=== PATIENT | male | born 1975 | race Caucasian/White ===

== ENCOUNTER 2021-12-31 06:06 | Outpatient (CLI) | payer OTHER ==
[~2021-12-31] VITALS: Ht 167.6 cm; Wt 87.5 kg
[2022-01-01] MEDS ORDERED: MELA10TA10 SL (09:36)
[2022-01-01] MEDS ORDERED: MELO15TA39 PO (09:36)
== END 2022-01-01 09:52 | disposition home or self-care (01) ==
LOC: PREOP 06:06
PROVIDERS: ATTEND Surgery
DX: Z01.818 Encounter for other preprocedural examination (principal)

== ENCOUNTER 2022-01-12 10:15 | Day surgery (SDC) | payer OTHER ==
[~2022-01-12] VITALS: Ht 167.6 cm; Wt 87.5 kg
[~2022-01-12 10:15] MED LIST: MELA10TA10 SL; MELO15TA39 PO
[2022-01-12] MEDS ORDERED: LACTATED RINGERS 1,000 ML IV STA (10:21)
[2022-01-12] MEDS ORDERED: HURRICAINE EXT TUBE (BENZOCAINE) XX PRN (10:30)
[2022-01-12] MEDS ORDERED: LACTATED RINGERS 1,000 ML IV ONE (10:39)
[2022-01-12 11:00] VITALS: BP 131/91
[2022-01-12] MEDS ORDERED: PROPOFOL INJECTION 50 ML IV ONE (12:58)
[2022-01-12] MEDS ORDERED: MIDAZOLAM 2 MG/2 ML (VERSED) VIAL ONE (12:58)
[2022-01-12 13:35] VITALS: BP 115/68
--- NOTE | 2022-01-12 13:39 | Progress Note-Post Operative ---
Post-Operative Progess Note Surgeon (s)/Telecasting Technician (s) Surgeon KEANU LARSON DO Telecasting Technician: none Pre-Operative Diagnosis GERD, Screening Colonoscopy Post-Operative Diagnosis Gastritis Esophagitis Hiatal hernia Polyps diverticula int hemorrhoids Procedure & Operative Findings Date of Procedure 01/12/22 Procedure Performed/Findings EGD with bx Colon with hot bx PROCEDURE NOTE: After informed consent was obtained, the patient was brought to the endoscopy suite, placed in bed in left lateral decubitus position. He was administered IV sedation by the [employer] MANAGER who then monitored vitals the entire time, heart rate, blood pressure and pulse ox and the scope was inserted down the mouth through the esophagus into the stomach. On the way down, noted some moderate esophagitis, took a picture, pushed into the stomach and pushed past the antrum into the duodenum. Duodenum looked good. Pulled back and did a biopsy of antrum, then retroflexed the scope, saw small hiatal hernia, took a picture of this and then pulled the scope into the GE junction and then did a biopsy of the GE junction. Pushed the scope back into the stomach, suctioned all the air out of the stomach. At this point pulled the scope up the esophagus, took a biopsy of the esophagus and then pulled scope out of the mouth. Switched camera, switched gloves, went down below and started the colonoscopy. Pushed all the way into about 140 cm to get all the way to cecum, took a picture of the appendiceal orifice and noted the ileocecal valve. I saw a flat polyp in the cecum, took a picture and then did 3 hot biopsies to remove the entire polyp. Next, slowly withdrew the scope, insufflating to look circumferentially at the ryan starting in the cecum, up the ascending colon to the hepatic flexure, then down the transverse colon, to the splenic flexure and into the descending colon. I found another flat polyp here and did another hot biopsy. Continued down into the sigmoid and finally into the rectum, retroflexed in the rectal vault, saw some minimal internal hemorrhoids and took a picture of them. The patient tolerated the procedure and he recovered in the endoscopy suite. Recommended for repeat colonoscopy in 5 years Anesthesia Type IV sedation by [employer]GER Estimated Blood Loss Estimated blood loss (mL): scant Specimens/Packing Specimens Removed antral bx gastric polyp GE jxn bx Esophagus bx cecal polyp desc colon polyp KEANU LARSON DO Jan 12, 2022 13:39
[2022-01-12 13:40] VITALS: BP 113/68
--- NOTE | 2022-01-12 13:41 | Progress Note-Pre Operative ---
Pre-Operative Progress Note Date of Available H&P: Dec 23, 2021 Date H&P Reviewed: Jan 12, 2022 Time H&P Reviewed: 12:17 History & Physical: H&P Reviewed, Patient Examed, No changes noted Pre-Operative Diagnosis: GERD, screening KEANU LARSON DO Jan 12, 2022 13:41
--- NOTE | 2022-01-12 13:42 | Endoscopy Discharge Instruct ---
Endo Procedure/Findings Findings 1.: Gastritis 2.: Hiatal Hernia, Dixon's Esophagus 3.: Polyp 4.: Diverticulosis, Internal Hemorrhoids Discharge Instructions - Activity: You might feel a little sleepy until tomorrow. This is due to the medicine you received to relax you. Until tomorrow, you should: NOT drive a car, operate machinery or power tools. NOT drink any alcoholic beverages. NOT make any important decisions or sign importortant papers. Do not return to work until tomorrow, unless otherwise instructed. Resume previous activities tomorrow. Diet: Start by taking liquids. If you tolerate liquids, advance to solid food. 1.: EGD in 1 year 2.: Colonscopy in 5 years Notify Physician - If you experience excessive bleeding, unusual abdominal pain, fever, or chest pain, contact your doctor immediately. KEANU LARSON DO Jan 12, 2022 13:42
[2022-01-12 13:45] VITALS: BP 133/72
[2022-01-12 14:10] VITALS: BP 133/72
--- NOTE | 2022-01-12 14:11 | Anesthesia-General Post-Op ---
MAC Patient Condition Mental Status/LOC: Same as Preop Cardiovascular: Satisfactory Nausea/Vomiting: Absent Respiratory: Satisfactory Pain: Controlled Complications: Absent Post Op Complications Complications None Follow Up Care/Instructions Patient Instructions None needed. Anesthesiology Discharge Order Discharge Order Patient is doing well, no complaints, stable vital signs, no apparent adverse anesthesia problems. No complications reported per nursing. REUBEN GARCIA CRNA Jan 12, 2022 14:11
== END 2022-01-12 14:18 | disposition home or self-care (01) ==
LOC: ENDO 10:15
PROVIDERS: ATTEND Surgery
DX: Z12.11 Encounter for screening for malignant neoplasm of colon (principal); D12.0 Benign neoplasm of cecum; D12.4 Benign neoplasm of descending colon; K21.00 Gastro-esophageal reflux disease with esophagitis, without bleeding; K31.89 Other diseases of stomach and duodenum; K57.30 Diverticulosis of large intestine without perforation or abscess without bleeding; K64.8 Other hemorrhoids; K44.9 Diaphragmatic hernia without obstruction or gangrene; K29.70 Gastritis, unspecified, without bleeding; Z87.891 Personal history of nicotine dependence